=== PATIENT | male | born 1950 | race Caucasian/White ===

== ENCOUNTER 2018-02-27 09:14 | Day surgery (SDC) | payer OTHER ==
[2018-02-23 10:37] VITALS: BMI 29.9
[2018-02-27 09:33] VITALS: TEMP 98.7
[2018-02-27] MEDS ORDERED: PROPOFOL 20 ML ONE ×2 (10:17)
[2018-02-27 11:48] VITALS: BP 114/68; PULSE 64
== END 2018-02-27 11:50 | disposition home or self-care (01) ==
LOC: FASU-ENDO 09:14
PROVIDERS: ATTEND Internal Medicine Gastroenterology
PROC: 0DJD8ZZ Inspection of Lower Intestinal Tract, Via Natural or Artificial Opening Endoscopic (ICD-10-PCS; principal; 2018-02-27 10:00)
DX: Z86.010 Personal history of colon polyps (principal); Z80.0 Family history of malignant neoplasm of digestive organs; K57.30 Diverticulosis of large intestine without perforation or abscess without bleeding